=== PATIENT | female | born 1965 | race Two or more races ===

== ENCOUNTER 2022-12-13 07:36 | Outpatient (CLI) | payer BC ==
[2022-12-13] VITALS (17 sets, daily range): BP systolic 52–133; BP diastolic 33–87
== END 2022-12-13 23:59 | disposition home or self-care (01) ==
LOC: CARD DIAG 07:36
PROVIDERS: ATTEND Internal Medicine Interventional Cardiology
DX: I95.9 Hypotension, unspecified (principal)
CPT/HCPCS: 93660